=== PATIENT | female | born 1995 | race Caucasian/White ===

== ENCOUNTER 2019-06-21 00:21 | Emergency (ER) | payer OTHER | END 2019-06-21 00:48 | disposition home or self-care (01) | LOC: BURERS 00:21 | DX: O20.0 Threatened abortion (principal); O99.341 Other mental disorders complicating pregnancy, first trimester; F32.9 Major depressive disorder, single episode, unspecified; Z3A.01 Less than 8 weeks gestation of pregnancy | CPT/HCPCS: 99283 ==